=== PATIENT | male | born 1955 | race Caucasian/White ===

== ENCOUNTER → 2023-12-26 | Day surgery (SDC) | payer MEDICARE ==
[~2023-12-26] VITALS: Ht 180.3 cm; Wt 72.6 kg
[~2023-12-26] MED LIST: AMLODIPINE BESY10 MG PO; Lactated Ringer's Solution 1,000 ML IV ONE; Lactated Ringer's Solution 1,000 ML IV SCH; Lidocaine Hydrochloride 2% 10 ML AMP IM ONE; Midazolam Hydrochloride 2 MG/2 ML VIAL IV ONE; NATURE'S BLEND100 M2 PO; PROPOFOL 200 MG/20 ML VIAL IV ONE; TAMSULOSIN HCL0.4 MG PO; VITAMIN B-1100 M1 PO; VITAMIN D3125 MC1 PO; ZITHROMAX250 MG PO
[2023-12-26 09:30] VITALS: BP 156/86
[2023-12-26 11:31] VITALS: BP 126/72
[2023-12-26 11:46] VITALS: BP 122/68
[2023-12-26 12:00] VITALS: BP 130/74
== END | disposition home or self-care (01) ==
LOC: SDC 12-22 09:30
PROVIDERS: ATTEND Surgery
DX: Z12.11 Encounter for screening for malignant neoplasm of colon (principal); D12.4 Benign neoplasm of descending colon; D12.5 Benign neoplasm of sigmoid colon; D12.3 Benign neoplasm of transverse colon; D12.8 Benign neoplasm of rectum; K57.90 Diverticulosis of intestine, part unspecified, without perforation or abscess without bleeding; I10 Essential (primary) hypertension; I25.2 Old myocardial infarction; F17.210 Nicotine dependence, cigarettes, uncomplicated; F10.90 Alcohol use, unspecified, uncomplicated; Z98.890 Other specified postprocedural states; Z79.899 Other long term (current) drug therapy

== ENCOUNTER → 2025-07-18 | Outpatient (CLI) | payer MEDICARE, OTHER ==
[~2025-07-18] MED LIST changes: -Lactated Ringer's Solution 1,000 ML IV ONE; -Lactated Ringer's Solution 1,000 ML IV SCH; -Lidocaine Hydrochloride 2% 10 ML AMP IM ONE; -Midazolam Hydrochloride 2 MG/2 ML VIAL IV ONE; -PROPOFOL 200 MG/20 ML VIAL IV ONE
== END | disposition home or self-care (01) ==
LOC: CT 09:51
PROVIDERS: ATTEND Family Medicine
DX: Z12.2 Encounter for screening for malignant neoplasm of respiratory organs (principal); J43.9 Emphysema, unspecified; F17.210 Nicotine dependence, cigarettes, uncomplicated; I25.10 Atherosclerotic heart disease of native coronary artery without angina pectoris

== ENCOUNTER → 2025-08-08 | Outpatient (CLI) | payer MEDICARE, OTHER ==
[~2025-08-08] MED LIST changes: +ASPIRIN81 M1 PO; +ROSUVASTATIN CA10 MG PO
== END | disposition home or self-care (01) ==
LOC: CARD 01:09
PROVIDERS: ATTEND Nurse Practitioner Family
DX: I25.10 Atherosclerotic heart disease of native coronary artery without angina pectoris (principal); I49.9 Cardiac arrhythmia, unspecified

== ENCOUNTER → 2025-08-20 | Outpatient (CLI) | payer MEDICARE, OTHER | END | disposition home or self-care (01) | LOC: US 09:30 | PROVIDERS: ATTEND Family Medicine | DX: Z13.6 Encounter for screening for cardiovascular disorders (principal); I70.0 Atherosclerosis of aorta ==